=== PATIENT | male | born 1995 | race Caucasian/White ===

== ENCOUNTER 2018-01-15 17:56 | Emergency (ER) | payer BC ==
[~2018-01-15] VITALS: Ht 198.1 cm; Wt 116.0 kg
[2018-01-15 17:59] VITALS: BP 137/63; PULSE 106; RESP 20; TEMP 100; O2SAT 100
[2018-01-15] MEDS ORDERED: ACETAMINOPHEN 325 MG TAB PO ONE (19:15)
--- NOTE | 2018-01-15 19:16 | PD ---
HPI Chief Complaint: Cold / Flu Symptoms Time Seen by Provider: 19:04 Travel History International Travel<30 days: No Contact w/Intl Traveler<30days: No Traveled to known affect area: No History of Present Illness HPI This is a 22-year-old male with no significant past medical history presents for evaluation of right ear pain, sore throat, fevers and chills and myalgias. Symptoms started yesterday. He reports pain when he swallows, unrelieved with [id number] Aleve. Symptoms are moderate. Denies rash, cough, congestion , abdominal pain, nausea or vomiting. He reports that he traveled to the [facility] from [place] this morning by airplane. No sick contacts. No other complaints at this time. [facility] Past Medical History Medical History: Denies Significant Hx Social History Alcohol Use: No Tobacco Use: No Substance Use: No Allergies-Medications (Allergen,Severity, Reaction): Coded Allergies: No Known Allergies (Unverified , 01/15/18) Reported Meds & Prescriptions Reported Meds & Active Scripts Active Augmentin (Amoxicillin-Clavulanate) 875-125 Mg Tab 1 Tab PO BID 10 Days Review of Systems Except as stated in HPI: all other systems reviewed are Neg Physical Exam Narrative GENERAL: Well-developed well-nourished male in no acute distress SKIN: Warm and dry. HEAD: Atraumatic. Normocephalic. EYES: Pupils equal and round. No scleral icterus. No injection or drainage. ENT: No nasal bleeding or discharge. Mucous membranes pink and moist. Oral pharyngeal erythema without exudate. The right tympanic membrane is erythematous but intact. Left tympanic membrane appears normal without erythema or fluid levels. NECK: Trachea midline. No JVD. Tender anterior cervical lymphadenopathy noted. CARDIOVASCULAR: Regular rate and rhythm. No murmur appreciated. RESPIRATORY: No accessory muscle use. Clear to auscultation. Breath sounds equal bilaterally. GASTROINTESTINAL: Abdomen soft, non-tender, nondistended. Hepatic and splenic margins not palpable. Data Data Last Documented VS Vital Signs Date Time Temp Pulse Resp B/P (MAP) Pulse Ox O2 Delivery O2 Flow Rate FiO2 01/15/18 17:59 100.0 106 20 137/63 (87) 100 Orders Orders Group A Rapid Strep Screen (01/15/18 19:13) Acetaminophen (Tylenol) (01/15/18 19:15) Strep Culture (Group A) (01/15/18 19:15) Amoxicil-Clavulanate (Augmentin) (01/15/18 20:00) Ed Discharge Order (01/15/18 19:54) [facility] Medical Decision Making Medical Screen Exam Complete: Yes Emergency Medical Condition: Yes Medical Record Reviewed: Yes Differential Diagnosis Pharyngitis, tonsillitis, peritonsillar abscess, infectious mononucleosis, herpangina, otitis media, otitis externa, mastoiditis Narrative Course 22-year-old male 2 days of sore throat, right ear pain, fevers and chills. On examination he has pharyngitis, right otitis media, low-grade fever. Rapid strep screen ordered. Tylenol administered. Rapid strep screen is negative. The patient is being discharged with Augmentin. Diagnosis Primary Impression: Right otitis media Additional Impression: Pharyngitis Additional Instructions: Medication as prescribed. Take Tylenol Motrin as needed for pain and fever per dosing instructions on the bottle. Stay well hydrated and well-nourished. Return for any emergent medical conditions. Med/Other Pt SpecificInfo: Prescription(s) given Scripts Amoxicillin-Clavulanate (Augmentin) 875-125 Mg Tab 1 TAB PO BID for Infection for 10 Days, #20 TAB 0 Refills Prov: Sadi Oseguera MD 01/15/18 Disposition: 01 DISCHARGE HOME Condition: Stable Alex Ross Jan 15, 2018 19:16
[2018-01-15] MEDS ORDERED: AUGM875T3 PO (19:55)
[2018-01-15] MEDS ORDERED: AMOXICILLIN/CLAVULANATE K 875 MG TAB PO ONE (20:00)
== END 2018-01-15 20:19 | disposition home or self-care (01) ==
LOC: NEPD 17:56
DX: H66.91 Otitis media, unspecified, right ear (principal); J02.9 Acute pharyngitis, unspecified; R50.9 Fever, unspecified; M79.1 Myalgia
CPT/HCPCS: 87081; 87880; 99283